=== PATIENT | male | born 1955 | race Caucasian/White ===

== ENCOUNTER 2017-01-02 08:15 | Day surgery (SDC) | payer BC ==
[2016-12-31 11:09] LABS: Basophils # (auto) 0 uL; Basophils % (auto) 0.5 % (0.0-2.0); Eosinophils # (auto) 0.2 uL; Eosinophils % (auto) 3.3 % (0.0-7.0); Hematocrit 44.4 % (41.0-53.0); Hemoglobin 15.1 g/dL (13.5-17.5); Lymphocytes # (auto) 1.5 uL; Lymphocytes % (auto) 25.3 % (10.0-50.0); Mean Corpuscular Hemoglobin 29.1 pg (28.0-32.0); Mean Corpuscular Hgb Conc. 33.9 g/dL (32.0-36.0); Mean Platelet Volume 9.6 fL (7.4-10.4); Monocytes # (auto) 0.5 uL; Monocytes % (auto) 8.7 % (0.0-12.0); Neutrophils # (auto) 3.6 uL; Neutrophils % (auto) 62.2 % (37.0-80.0); Platelet Count (auto) 270 10^3/uL (140-450); Red Cell Distribution Width 13.9 % (11.6-16.0); White Blood Cell 5.7 10^3/uL (4.4-10.8)
[2016-12-31 11:23] LABS: INR 0.95 (0.9-1.15); Partial Thromboplastin Time 32.6 sec (22.64-33.71); Prothrombin Time 10.4 sec (9.37-12.3)
[~2017-01-02 08:15] MED LIST: PANT40TA2 PO
[2017-01-02] MEDS ORDERED: SODIUM CHLORIDE LOCK 10 ML ONE (08:16)
[2017-01-02] MEDS ORDERED: LIDOCAINE VISCOUS 2% 15ML UD ONE (08:16)
[2017-01-02] MEDS ORDERED: diphenhdrAMINE HCL 50 MG/1 ML VL ONE (08:17)
[2017-01-02] MEDS: fentaNYL CITRATE 100 MCG/2 ML VL ONE ×2 (09:35→09:40)
[2017-01-02] MEDS: MIDAZOLAM HCL 5 MG/ML-1ML VIAL ONE ×2 (09:35→09:40)
[2017-01-02 10:20] VITALS: BP 126/83
== END 2017-01-02 10:35 | disposition home or self-care (01) ==
LOC: GI 08:15
PROVIDERS: ATTEND Internal Medicine Gastroenterology
DX: K29.50 Unspecified chronic gastritis without bleeding (principal); K29.80 Duodenitis without bleeding; K44.9 Diaphragmatic hernia without obstruction or gangrene; K20.9 Esophagitis, unspecified
CPT/HCPCS: 36415; 43239; 85025; 85610; 85730; 88305; 88342; J1200; J2250; J3010; J7030